=== PATIENT | male | born 1950 | race African-American/Black ===

== ENCOUNTER 2019-12-30 09:10 | Emergency (ER) | payer MEDICARE, OTHER ==
[~2019-12-30] VITALS: Ht 177.8 cm; Wt 68.0 kg
[2019-12-30 09:15] VITALS: BP 140/68
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
--- NOTE | 2019-12-30 09:49 | NUR ---
ED Nurse Note: ERMD at bedside
[2019-12-30 10:12] LABS: BASOPHILS % (AUTO) 1.2 % (0.0-2.0); EOSINOPHILS % (AUTO) 2.4 % (0.0-3.0); HEMATOCRIT 35.5 % (42.0-52.0); HEMOGLOBIN 11.2 G/DL (14.2-18.0); LYMPHOCYTES % (AUTO) 35.1 % (20.0-45.0); MEAN CORPUSCULAR VOLUME 92 FL (80-99); MONOCYTES % (AUTO) 8.8 % (1.0-10.0); NEUTROPHILS % (AUTO) 52.6 % (45.0-75.0); PLATELET COUNT 168 K/UL (150-450); RED BLOOD COUNT 3.84 M/UL (4.70-6.10); WHITE BLOOD COUNT 3.9 K/UL (4.8-10.8)
[2019-12-30 10:20] LABS: ANION GAP 9 mmol/L (5-15); BLOOD UREA NITROGEN 15 mg/dL (7-18); CALCIUM 8.7 MG/DL (8.5-10.1); CARBON DIOXIDE 28 MMOL/L (21-32); CHLORIDE 106 MMOL/L (98-107); CREATININE 1.5 MG/DL (0.55-1.30); POTASSIUM 4.4 MMOL/L (3.5-5.1); SODIUM 143 MMOL/L (136-145)
--- NOTE | 2019-12-30 10:25 | Emergency Room Report ---
History of Present Illness General Chief Complaint: Multiple Trauma/Fall Source: EMS Present Illness HPI 69-year-old male presents the ED for evaluation of fall. States he fell and hit the back of his head today. Complaining of head pain, neck pain and foot pain. Dull, 9 out of 10, nonradiating. Cannot explain why he fell. States that he has a lot of medical problems including high blood pressure. States he has been feeling short of breath as well. Denies cough. Denies chest pain. Denies fevers or chills. No other aggravating relieving factors. Denies any other associated symptoms Allergies: Coded Allergies: No Known Allergies (Unverified , 12/30/19) COVID-19 Screening Contact w/high risk pt: No Recent Travel to affected area: No Experienced COVID-19 symptoms?: No COVID-19 Testing performed [employer] GR[employer]ER: No Patient History Past Medical History: other - chronic back pain Past Surgical History: other Pertinent Family History: none Social History: Denies: smoking, alcohol use, drug use Immunizations: UTD Reviewed Nursing Documentation: PMH: Agreed; PSxH: Agreed Nursing Documentation-PMH Hx Hypertension: Yes - chronic back pain Review of Systems All Other Systems: negative except mentioned in HPI Physical Exam Vital Signs Date Time Temp Pulse Resp B/P (MAP) Pulse Ox O2 Delivery O2 Flow Rate FiO2 12/30/19 09:06 98.4 81 16 160/90 (113) 96 Room Air Sp02 EP Interpretation: reviewed, normal General Appearance: no apparent distress, alert, GCS 15, non-toxic Head: normocephalic, atraumatic Eyes: bilateral eye normal inspection, bilateral eye PERRL ENT: hearing grossly normal, normal pharynx, no angioedema, normal voice Neck: full range of motion, supple/symm/no masses Respiratory: chest non-tender, lungs clear, normal breath sounds, speaking full sentences Cardiovascular #1: regular rate, rhythm, no edema Cardiovascular #2: 2+ carotid (R), 2+ carotid (L), 2+ radial (R), 2+ radial (L) , 2+ dorsalis pedis (R), 2+ dorsalis pedis (L) Gastrointestinal: normal bowel sounds, non tender, soft, non-distended, no guarding, no rebound Rectal: deferred Genitourinary: normal inspection, no CVA tenderness Musculoskeletal: back normal, normal range of motion, gait/station normal, non- tender Neurologic: alert, motor strength/tone normal, oriented x3, sensory intact, responsive, speech normal Psychiatric: judgement/insight normal, memory normal, mood/affect normal, no suicidal/homicidal ideation Reflexes: 3+ bicep (R), 3+ bicep (L), 3+ tricep (R), 3+ tricep (L), 3+ knee (R) , 3+ knee (L) Lymphatic: no adenopathy Medical Decision Making Diagnostic Impression: Primary Impression: Multiple injuries due to trauma Additional Impression: Anxiety ER Course Hospital Course 69 yo M presents to ED with headache and neck pain after fall. ? syncope Differential diagnoses include: arrythmia, dehydration, intracranial bleed, seizure Clinical course Patient placed on stretcher. 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 After initial history and physical I ordered labs, EKG, chest Xray, IVFs, CT Brain, CT Cspine, Xrays of feet labs reviewed- no leukocytosis, Hb/Hct stable, electrolytes ok, troponins negative CT Brain - unremarkable CT C spine - multilevel DJD, hardware noted no acute fx Chest x-ray- no acute process EKG - NSR, early repolarization no acute ischemic changes Upon reassessment patient states he feels better wishes to go home. I discussed findings with patient. I offered option for admission but he states he feels better and wishes to be discharged. He thinks anxiety could be contributing to his symptoms. I agree with his assessment. States he wants to go home and rest. States he will follow-up with his PMD. Safe for discharge close outpatient follow-up. I. I feel this is a highly complex case requiring extensive working including EKG/Rhythm strip, Xray/CT/US, Blood/urine lab work, repeat exams while in ED, and administration of strong opiates/narcotics for pain control, admission to hospital or close patient follow up. Diagnosis - multiple injuries due to trauma, anxiety Stable and discharged to home. Followup with PMD. Return to ED if symptoms recur or worsen Labs Test 12/30/19 10:00 12/30/19 10:26 White Blood Count 3.9 K/UL (4.8-10.8) Red Blood Count 3.84 M/UL (4.70-6.10) Hemoglobin 11.2 G/DL (14.2-18.0) Hematocrit 35.5 % (42.0-52.0) Mean Corpuscular Volume 92 FL (80-99) Mean Corpuscular Hemoglobin 29.2 PG (27.0-31.0) Mean Corpuscular Hemoglobin Concent 31.5 G/DL (32.0-36.0) Red Cell Distribution Width 14.0 % (11.6-14.8) Platelet Count 168 K/UL (150-450) Mean Platelet Volume 7.3 FL (6.5-10.1) Neutrophils (%) (Auto) 52.6 % (45.0-75.0) Lymphocytes (%) (Auto) 35.1 % (20.0-45.0) Monocytes (%) (Auto) 8.8 % (1.0-10.0) Eosinophils (%) (Auto) 2.4 % (0.0-3.0) Basophils (%) (Auto) 1.2 % (0.0-2.0) Sodium Level 143 MMOL/L (136-145) Potassium Level 4.4 MMOL/L (3.5-5.1) Chloride Level 106 MMOL/L (98-107) Carbon Dioxide Level 28 MMOL/L (21-32) Anion Gap 9 mmol/L (5-15) Blood Urea Nitrogen 15 mg/dL (7-18) Creatinine 1.5 MG/DL (0.55-1.30) Estimat Glomerular Filtration Rate 55.9 mL/min (>60) Glucose Level 103 MG/DL (74-106) Calcium Level 8.7 MG/DL (8.5-10.1) Total Bilirubin 0.5 MG/DL (0.2-1.0) Aspartate Amino Transf (AST/SGOT) 23 U/L (15-37) Alanine Aminotransferase (ALT/SGPT) 19 U/L (12-78) Alkaline Phosphatase 69 U/L (46-116) Troponin I 0.007 ng/mL (0.000-0.056) Pro-B-Type Natriuretic Peptide 347 pg/mL (0-125) Total Protein 6.9 G/DL (6.4-8.2) Albumin 3.9 G/DL (3.4-5.0) Globulin 3.0 g/dL Albumin/Globulin Ratio 1.3 (1.0-2.7) Urine Color Pale yellow Urine Appearance Clear Urine pH 6.5 (4.5-8.0) Urine Specific [place] 1.010 (1.005-1.035) Urine Protein Negative (NEGATIVE) Urine Glucose (UA) Negative (NEGATIVE) Urine Ketones Negative (NEGATIVE) Urine Blood Negative (NEGATIVE) Urine Nitrite Negative (NEGATIVE) Urine Bilirubin Negative (NEGATIVE) Urine Urobilinogen Normal MG/DL (0.0-1.0) Urine Leukocyte Esterase Negative (NEGATIVE) Urine Opiates Screen Negative (NEGATIVE) Urine Barbiturates Screen Negative (NEGATIVE) Phencyclidine (PCP) Screen Negative (NEGATIVE) Urine Amphetamines Screen Negative (NEGATIVE) Urine Benzodiazepines Screen Negative (NEGATIVE) Urine Cocaine Screen Negative (NEGATIVE) Urine Marijuana (THC) Screen Positive (NEGATIVE) EKG Diagnostic Results Rate: bradycardiac Rhythm: NSR ST Segments: other - early repolarization ASA given to the pt in ED: No Rhythm Strip Diag. Results Rhythm: NSR, no PVC's, no ectopy Chest X-Ray Diagnostic Results Chest X-Ray Diagnostic Results : Chest X-Ray Ordered: Yes # of Views/Limited/Complete: 1 View Indication: Shortness of Breath EP Interpretation: Yes Interpretation: no consolidation, no effusion, no pneumothorax, no acute cardiopulmonary disease, other - hyperinflated lungs Impression: Other - COPD Electronically Signed by: Electronically signed by Christopher Gray MD Other X-Ray Diagnostic Results Other X-Ray Diagnostic Results #1: X-Ray ordered: R foot # of Views/Limited Vs Complete: 3 View Indication: Pain EP Interpretation: Yes Interpretation: no dislocation, no soft tissue swelling, no fractures Impression: No acute disease Electronically Signed by: Electronically signed by Christopher Gray MD Other X-Ray Diagnostic Results #2: X-Ray ordered: L foot # of Views/Limited Vs Complete: 3 View Indication: Pain EP Interpretation: Yes Interpretation: no dislocation, no soft tissue swelling, no fractures Impression: No acute disease Electronically Signed by: Electronically signed by Christopher Gray MD CT/MRI/US Diagnostic Results CT/MRI/US Diagnostic Results #1: Imaging Test Ordered: CT Head Impression Procedure: CT Head no Contrast Indications: Head trauma, status post fall, head pain Technique: Spiral acquisitions obtained through the brain. Angled axial and coronal 5 x 5 mm slices were reconstructed. Total dose length product 965 mGycm. CTDI vol (s) 53 mGy. Dose reduction achieved using automated exposure control Comparison: None. Findings: No acute intercranial hemorrhage or edema. No mass effect nor midline shift. Normal ashford-white differentiation. Normal size ventricles and extra- axial CSF spaces. Intact calvarium. Mastoids are clear. The sinuses are clear. The orbits are unremarkable. Impression: Negative The CT scanner at [facility] is accredited by the [employer] and the scans are performed using protocols designed to limit radiation exposure to as low as reasonably achievable to attain images of sufficient resolution adequate for diagnostic evaluation. CT/MRI/US Diagnostic Results #2: Imaging Test Ordered: CT C spine Impression Procedure: CT C Spine no Contrast Indication: Neck pain, status post fall Technique: Spiral acquisitions obtained through the cervical spine. No IV contrast utilized. Multiplanar reconstructions were generated. Total dose length product 109 mGycm. CTDIvol(s) 4 mGy. Dose reduction achieved using automated exposure control. Comparison: none Findings: Bony alignment is normal. There is prior surgical fusion of C4-C5, C6 , C7. There is complete ankylosis of the discs. Small bony ridges are also seen connecting the C3, C4, C5, C6, C7 spinous processes. Bony alignment is normal. Vertebral body heights are preserved. There is no prevertebral soft tissue swelling. No acute fractures. There is marked degenerative narrowing of the anterior atlantoaxial joint. At C2-C3, there is mild right neural foraminal stenosis. The disc space is preserved and there is no significant disc bulge or protrusion or spinal stenosis. At C3-4, the disc space is preserved. There is severe narrowing of the right neural foramen. Posterior osteophyte on the right may impinge slightly upon the right lateral recess and At C4-5, short pedicles result in borderline narrowing of the spinal canal. There is mild bilateral neural foraminal stenosis. At C5-6, short pedicles result in mild narrowing of the spinal canal. There is moderate bilateral neural foraminal stenosis. At C6-7, short pedicles result in borderline narrowing of the spinal canal. There is no mild to moderate bilateral neural foraminal stenosis. At C7-T1, there is mild degenerative disc narrowing. No significant disc bulge or protrusion or spinal stenosis. There is mild narrowing of bilateral neural foramina. There is multilevel degenerative disc narrowing and neural foraminal stenosis of the upper thoracic spine. Included lung apices demonstrate COPD changes. The remaining extraspinal soft tissues are unremarkable. Impression: No acute bony trauma Multilevel degenerative changes, as detailed on a level by level basis above COPD Last Vital Signs Date Time Temp Pulse Resp B/P (MAP) Pulse Ox O2 Delivery O2 Flow Rate FiO2 12/30/19 09:15 89 23 Room Air 12/30/19 09:15 98.4 140/68 98 Status: improved Disposition: HOME, SELF-CARE Condition: Serious Scripts Acetaminophen* (TYLENOL EXTRA STRENGTH*) 500 Mg Tablet 500 MG ORAL Q8H PRN for Prn Headache/Temp > 101, #30 TAB 0 Refills Prov: Christopher Gray MD 12/30/19 Lidocaine Patch* (Lidoderm Patch*) 1 Each Adh..patch 1 PATCH TOPIC DAILY, #7 PATCH 0 Refills Patch(es) may remain in place for up to 12 hours in any 24-hour period. Prov: Christopher Gray MD 12/30/19 Referrals: NOT CHOSEN [facility]/,REFERRING (PCP) Christopher Gray MD Dec 30, 2019 10:25
[2019-12-30 10:31] LABS: ALANINE AMINOTRANSFERASE 19 U/L (12-78); ALBUMIN 3.9 G/DL (3.4-5.0); ALBUMIN/GLOBULIN RATIO 1.3 (1.0-2.7); ALKALINE PHOSPHATASE 69 U/L (46-116); ASPARTATE AMINO TRANSFERASE 23 U/L (15-37); BILIRUBIN,TOTAL 0.5 MG/DL (0.2-1.0)
--- NOTE | 2019-12-30 10:32 | NUR ---
ED Nurse Note: pt taken to CT in stable condition.
[2019-12-30 10:39] LABS: APPEARANCE,URINE CLEAR; BILIRUBIN, URINE NEGATIVE (NEGATIVE); COLOR,URINE PALE YELLOW; GLUCOSE, URINE (UA) NEGATIVE (NEGATIVE); KETONES,URINE NEGATIVE (NEGATIVE); LEUKOCYTE ESTERASE ,URINE NEGATIVE (NEGATIVE); NITRITE,URINE NEGATIVE (NEGATIVE); PH,URINE 6.5 (4.5-8.0); PROTEIN,URINE NEGATIVE (NEGATIVE); UROBILINOGEN,URINE NORMAL MG/DL (0.0-1.0)
--- NOTE | 2019-12-30 11:08 | NUR ---
ED Nurse Note: pt came back from CT and x-ray in stable condition.
--- NOTE | 2019-12-30 11:33 | Diagnostic Imaging Report ---
Indications: Head trauma, status post fall, head pain Technique: Spiral acquisitions obtained through the brain. Angled axial and coronal 5 x 5 mm slices were reconstructed. Total dose length product 965 mGycm. CTDI vol(s) 53 mGy. Dose reduction achieved using automated exposure control Comparison: None. Findings: No acute intercranial hemorrhage or edema. No mass effect nor midline shift. Normal ashford-white differentiation. Normal size ventricles and extra-axial CSF spaces. Intact calvarium. Mastoids are clear. The sinuses are clear. The orbits are unremarkable. Impression: Negative The CT scanner at [facility] is accredited by the [employer] and the scans are performed using protocols designed to limit radiation exposure to as low as reasonably achievable to attain images of sufficient resolution adequate for diagnostic evaluation.
--- NOTE | 2019-12-30 11:39 | Diagnostic Imaging Report ---
Indication: Neck pain, status post fall Technique: Spiral acquisitions obtained through the cervical spine. No IV contrast utilized. Multiplanar reconstructions were generated. Total dose length product 109 mGycm. CTDIvol(s) 4 mGy. Dose reduction achieved using automated exposure control. Comparison: none Findings: Bony alignment is normal. There is prior surgical fusion of C4-C5, C6, C7. There is complete ankylosis of the discs. Small bony ridges are also seen connecting the C3, C4, C5, C6, C7 spinous processes. Bony alignment is normal. Vertebral body heights are preserved. There is no prevertebral soft tissue swelling. No acute fractures. There is marked degenerative narrowing of the anterior atlantoaxial joint. At C2-C3, there is mild right neural foraminal stenosis. The disc space is preserved and there is no significant disc bulge or protrusion or spinal stenosis. At C3-4, the disc space is preserved. There is severe narrowing of the right neural foramen. Posterior osteophyte on the right may impinge slightly upon the right lateral recess and At C4-5, short pedicles result in borderline narrowing of the spinal canal. There is mild bilateral neural foraminal stenosis. At C5-6, short pedicles result in mild narrowing of the spinal canal. There is moderate bilateral neural foraminal stenosis. At C6-7, short pedicles result in borderline narrowing of the spinal canal. There is no mild to moderate bilateral neural foraminal stenosis. At C7-T1, there is mild degenerative disc narrowing. No significant disc bulge or protrusion or spinal stenosis. There is mild narrowing of bilateral neural foramina. There is multilevel degenerative disc narrowing and neural foraminal stenosis of the upper thoracic spine. Included lung apices demonstrate COPD changes. The remaining extraspinal soft tissues are unremarkable. Impression: No acute bony trauma Multilevel degenerative changes, as detailed on a level by level basis above COPD The CT scanner at [facility] is accredited by the [employer] and the scans are performed using protocols designed to limit radiation exposure to as low as reasonably achievable to attain images of sufficient resolution adequate for diagnostic evaluation.
--- NOTE | 2019-12-30 11:46 | NUR ---
ED Nurse Note: ERMD at bedside explaining imaging and lab results.
[2019-12-30] MEDS ORDERED: LIDODERM700 M1 TOPIC (12:02)
[2019-12-30] MEDS ORDERED: TYLENOL EXTRA500 MG ORAL (12:02)
[2019-12-30 12:14] VITALS: BP 126/70
--- NOTE | 2019-12-30 12:15 | NUR ---
ED Nurse Note: Pt cleared by health care Provider for discharge. DC instructions/prescription was given and explained to pt and verbalized understanding of teachings. All medical deviecs such as ID band removed. Pt is AAO x4, ambulatory and left with all personal belongings.
--- NOTE | 2019-12-30 14:04 | Diagnostic Imaging Report ---
Indication: Shortness of breath Technique: One view of the chest Comparison: 02/28/2012 Findings: Hyperinflation is again demonstrated in the bilateral upper lobes. The lungs and pleural spaces are clear otherwise. The heart size is normal. Impression: COPD changes. No acute process
--- NOTE | 2019-12-30 14:06 | Diagnostic Imaging Report ---
Indication: Right foot pain Technique: 3 views right foot Comparison: none Findings: There is degenerative change of the first metatarsophalangeal joint. There is bunion formation. There is slight hammertoe deformities second through fifth digits. No acute fractures. No dislocations. The joint spaces are preserved. Impression: Degenerative changes. No acute bony trauma
--- NOTE | 2019-12-30 14:08 | Diagnostic Imaging Report ---
Indication: Left foot pain Technique: 3 views left foot Comparison: none Findings: There is bunion formation. There is mild degenerative narrowing of the first metatarsophalangeal joint. There is slight developmental appearing deformity of the second middle phalanx. No acute fractures. No dislocations. The joint spaces are preserved. Impression: Degenerative changes. No acute bony trauma
== END 2019-12-30 12:16 | disposition home or self-care (01) ==
LOC: EDBD 09:10 → EMR 09:48
DX: F41.9 Anxiety disorder, unspecified (principal); M54.2 Cervicalgia; R51 Headache; M25.579 Pain in unspecified ankle and joints of unspecified foot; R00.1 Bradycardia, unspecified; J44.9 Chronic obstructive pulmonary disease, unspecified; M48.02 Spinal stenosis, cervical region; R06.02 Shortness of breath; M25.572 Pain in left ankle and joints of left foot; M25.571 Pain in right ankle and joints of right foot; M20.41 Other hammer toe(s) (acquired), right foot
CPT/HCPCS: 36415; 70450; 71045; 72125; 73630; 80053; 80307; 81003; 83880; 84484; 85025; 93005; 99284; J7040

== ENCOUNTER 2020-05-20 10:04 | Emergency (ER) | payer MEDICARE, OTHER ==
[~2020-05-20] VITALS: Ht 165.1 cm; Wt 54.4 kg
[~2020-05-20 10:04] MED LIST: LIDODERM700 M1 TOPIC; TYLENOL EXTRA500 MG ORAL
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
[2020-05-20] MEDS ORDERED: Ketorolac 30mg Inj IM ONE (10:15)
[2020-05-20 10:21] VITALS: BP 129/69
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
[2020-05-20] MEDS ORDERED: ALBUTEROL2.5 MG/3 M HHN (11:42)
[2020-05-20] MEDS ORDERED: LEVOFLOXACIN750 MG ORAL (11:43)
[2020-05-20] MEDS ORDERED: IBUPROFEN600 M1 ORAL (11:43)
[2020-05-20] MEDS ORDERED: Levofloxacin 750mg tab ORAL ONE (11:45)
[2020-05-20 12:11] VITALS: BP 129/69
== END 2020-05-20 12:11 | disposition home or self-care (01) ==
LOC: EDBD 10:04 → EMR 12:05
DX: J44.9 Chronic obstructive pulmonary disease, unspecified (principal); R07.81 Pleurodynia; J18.9 Pneumonia, unspecified organism
CPT/HCPCS: 71250; 96372; 99284; J1885